=== PATIENT | female | born 1950 | race Caucasian/White ===

== ENCOUNTER → 2016-09-13 | Outpatient (CLI) | payer MEDICARE ==
[2016-09-13 09:38] LABS: Basophils # (A) 0.1 k/uL (0-0.2); Basophils % (A) 1 %; CH 31.9; Eosinophils # (A) 0.3 k/uL (0-0.7); Eosinophils % (A) 5 %; HCT 45.1 % (34.0-46.0); HDW 2.07; HGB 14.2 gm/dL (11.4-16.0); Luc # (Auto) 0.14; Luc % (Auto) 2; Lymphocytes # (A) 1.3 k/uL (1.0-4.8); Lymphocytes % (A) 20 %; MCH 31.5 pg (25.0-35.0); MCHC 31.5 g/dL (31.0-37.0); MCV 100.2 fL (80.0-100.0); Mean Platelet Volume 8.3; Monocytes # (A) 0.7 k/uL (0-1.0); Monocytes % (A) 10 %; Neutrophils % (A) 62 %; RDW 12.8 % (11.5-15.5); WBC 6.5 k/uL (3.8-10.6); WBC (Perox) 6.61
--- NOTE | 2016-09-13 11:48 | BD ---
EXAMINATION TYPE: MG DEXA axial skeleton. DATE OF EXAM: 09/13/2016 9:51 AM COMPARISON: NONE CLINICAL HISTORY: Height: 66.5 IN Weight: 182 LBS FRAX RISK QUESTIONS: Alcohol (3 or more units per day): NO Family History (Parent hip fracture): NO Glucocorticoids (More than 3mos): NO (Ex: prednisone, prednisolone, methylprednisolone, dexamethasone, and hydrocortisone). History of Fracture in Adulthood: NO Secondary Osteoporosis: 1. Type 1 Diabetes: NO 2. Hyperthyroidism: NO 3. Menopause before 45: NO 4. Malnutrition: NO 5. Chronic liver disease: NO Rheumatoid Arthritis: NO Current Tobacco Use: NO RISK FACTORS HISTORY OF: Family History of Osteoporosis: YES MOTHER Active: YES Postmenopausal woman: AGE 46 MEDICATIONS: Additional Medications: ZETIA, MYTERBIQ,CRANBERRY PILL, VIT C, BIOTIN EXAM MEASUREMENTS: Bone mineral densitometry was performed using the [employer] System. Bone mineral density as measured about the Lumbar spine is: ----- L1-L4(G/cm2): 0.969 T Score Values are as follows: ----- L2: -2.7 ----- L3: -1.5 ----- L4: -1.0 ----- L1-L4: -1.8 Bone mineral density has: NO CHANGE 0.0% since study of: 06/24/2008 Bone mineral density about the R hip (g/cm2): 0.782 Bone mineral density about the L hip (g/cm2): 0.795 T Score values are as follows: -----R Neck: -1.8 -----L Neck: -1.8 -----R Intertrochanter: -1.6 -----L Intertrochanter: -1.6 Bone mineral density has: Decreased -1.6% since study of: 06/24/2008 IMPRESSION: Osteoporosis (T Score less than -2.5) as noted by T Score values at the There is increased fracture risk and therapy is usually indicated based on age. Re-Screen 1-2 years.L2 NOTE: T-SCORE=SD OF THE YOUNG ADULT MEAN.
[2016-09-13 11:53] LABS: ALT 33 U/L (9-52); AST 30 U/L (14-36); Alkaline Phosphatase 69 U/L (38-126); Anion Gap 8 mmol/L; Blood Urea Nitrogen 16 mg/dL (7-17); Calcium 9.8 mg/dL (8.4-10.2); Carbon Dioxide 30 mmol/L (22-30); Chloride 104 mmol/L (98-107); Cholesterol 257 mg/dL (<200); Glucose 97 mg/dL (74-99); HDL Cholesterol 105 mg/dL (40-60); Magnesium 1.8 mg/dL (1.6-2.3); Non-African American GFR(MDRD) >60 (>60 ml/min/1.73 sqM); Potassium 4.4 mmol/L (3.5-5.1); Sodium 142 mmol/L (137-145); Total Bilirubin 0.8 mg/dL (0.2-1.3); Total Protein 7.5 g/dL (6.3-8.2); Triglycerides 80 mg/dL (<150)
[2016-09-13 12:56] LABS: Vitamin B12 493 pg/mL
--- NOTE | 2016-09-14 10:44 | MM ---
Reason for exam: screening (asymptomatic). Last mammogram was performed 1 year ago. History: Patient is postmenopausal. Family history of breast cancer in paternal aunt at age 60. Stereotactic core biopsy of the right breast, June 22, 2004. Benign excisional biopsy of the right breast. Took hormonal contraceptives for 5 years beginning at age 19. Physical Findings: A clinical breast exam by your physician is recommended on an annual basis and results should be correlated with mammographic findings. MG 3D Screening Mammo W/Cad Bilateral CC and MLO view(s) were taken. Prior study comparison: September 03, 2015, bilateral MG 3d screening mammo w/cad. August 18, 2014, bilateral MG screening mammo w CAD. There are scattered fibroglandular densities. Benign calcifications. There is no discrete abnormality. No significant changes when compared with prior studies. ASSESSMENT: Benign, BI-RAD 2 RECOMMENDATION: Routine screening mammogram of both breasts in 1 year.
== END | disposition home or self-care (01) ==
LOC: RADMAMWWP 09:10
PROVIDERS: ATTEND Family Medicine
DX: Z12.31 Encounter for screening mammogram for malignant neoplasm of breast (principal); Z13.29 Encounter for screening for other suspected endocrine disorder; M81.0 Age-related osteoporosis without current pathological fracture; E78.00 Pure hypercholesterolemia, unspecified; Z78.0 Asymptomatic menopausal state
CPT/HCPCS: 80061; 80053; 82607; 82746; 83735; 84443; 85025; 82306; 77080; 77063; 36415; G0202

== ENCOUNTER → 2017-02-21 | Outpatient (CLI) | payer MEDICARE ==
--- NOTE | 2017-02-21 15:56 | FL ---
EXAMINATION TYPE: FL barium swallow DATE OF EXAM: 02/21/2017 COMPARISON: NONE HISTORY: Dysphagia TECHNIQUE: A single contrast UGI study is performed. FINDINGS: Esophagus dilates to normal caliber has normal contour to the lower esophagus. Small hiatal hernia is present. This appears to be self reducing. No stenosis at the gastroesophageal junction is evident. IMPRESSIONS: 1. Small hiatal hernia which is self reducing.
== END | disposition home or self-care (01) ==
LOC: RADFLWHC 09:32
PROVIDERS: ATTEND Family Medicine
DX: K44.9 Diaphragmatic hernia without obstruction or gangrene (principal)
CPT/HCPCS: 74220

== ENCOUNTER 2017-04-10 06:06 | Emergency (ER) | payer MEDICARE ==
[2017-04-10 06:12] VITALS: BP 146/69; PULSE 75; RESP 18; TEMP 98.3
[2017-04-10] MEDS ORDERED: DIAZEPAM 5 MG/ML 2 ML SYRINGE IM ONE (06:37)
[2017-04-10] MEDS ORDERED: KETOROLAC 30 MG/ML 1 ML VIAL IM STA (06:37)
--- NOTE | 2017-04-10 06:52 | ED ---
General Adult HPI - General Source: patient, family, RN notes reviewed Mode of arrival: ambulatory Limitations: no limitations <Harinder Hardy - Last Filed: 04/10/17 06:47> <Harinder Ortiz - Last Filed: 04/10/17 10:00> - General Chief complaint: Back Pain/Injury Stated complaint: Back Pain Time Seen by Provider: 04/10/17 06:18 - History of Present Illness Initial comments: 66-year-old female with no significant history presents for evaluation of lower back pain. Patient is fairly active. She was at her aerobics class yesterday. No pain or injury. Went home schooling about her day, she was ironing some clothes and felt sudden onset back pain. This was bilateral nature. No shooting pain into the legs. No numbness or tingling. Pain is been constant and worsening over the past 12 hours. She denies any urinary incontinence or stool incontinence. Denies abdominal pain. Denies any symptoms in her lower legs, including numbness and tingling, no saddle anesthesia. (Harinder Hardy) - Related Data Home Medications Medication Instructions Recorded Confirmed Ascorbic Acid [Vitamin C] 500 mg PO HS 04/10/17 04/10/17 Biotin 5 mg PO HS 04/10/17 04/10/17 Ezetimibe [Zetia] 10 mg PO HS 04/10/17 04/10/17 Ibuprofen [Motrin] 400 mg PO Q6HR PRN 04/10/17 04/10/17 Mirabegron [Myrbetriq] 50 mg PO HS 04/10/17 04/10/17 Ubidecarenone [Co Q-10] 100 mg PO HS 04/10/17 04/10/17 Previous Rx's Medication Instructions Recorded Cyclobenzaprine [Flexeril] 10 mg PO TID #20 tab 04/10/17 Hydrocodone/Acetaminophen [[place] 1 - 2 each PO Q4HR PRN #20 tab 04/10/17 5-325] Ibuprofen [Motrin] 600 mg PO Q6H PRN #20 tab 04/10/17 Allergies Allergy/AdvReac Type Severity Reaction Status Date / Time ciprofloxacin [From Cipro] Allergy Unknown Verified 04/10/17 08:07 Penicillins Allergy Rash/Hives Verified 04/10/17 08:07 shellfish derived [Shrimp] Allergy Rash/Hives Verified 04/10/17 08:07 Sulfa (Sulfonamide Allergy Dyspnea Verified 04/10/17 08:07 Antibiotics) Review of Systems ROS Other: All systems not noted in ROS Statement are negative. <Harinder Hardy - Last Filed: 04/10/17 06:47> ROS Other: All systems not noted in ROS Statement are negative. <Harinder Ortiz - Last Filed: 04/10/17 10:00> ROS Statement: Those systems with pertinent positive or pertinent negative responses have been documented in the HPI. Past Medical History Past Medical History: Hypertension History of Any Multi-Drug Resistant Organisms: None Reported Past Surgical History: Hysterectomy, Tonsillectomy Past Psychological History: No Psychological Hx Reported Smoking Status: Never smoker Past Alcohol Use History: Occasional Past Drug Use History: None Reported <Harinder Hardy - Last Filed: 04/10/17 06:47> General Exam Limitations: no limitations General appearance: alert, in no apparent distress Head exam: Present: atraumatic, normocephalic Eye exam: Present: normal appearance, PERRL ENT exam: Present: normal exam Neck exam: Present: normal inspection, full ROM. Absent: tenderness Respiratory exam: Present: normal lung sounds bilaterally. Absent: respiratory distress, wheezes Cardiovascular Exam: Present: regular rate, normal rhythm GI/Abdominal exam: Present: soft. Absent: distended, tenderness, guarding External exam: Present: normal external exam Extremities exam: Present: normal inspection, full ROM, normal capillary refill. Absent: tenderness, pedal edema Back exam: Present: normal inspection, tenderness, muscle spasm, paraspinal tenderness, vertebral tenderness Neurological exam: Present: alert, oriented X3, CN II-XII intact. Absent: motor sensory deficit Psychiatric exam: Present: normal affect, normal mood Skin exam: Present: warm, dry. Absent: cyanosis, diaphoretic <Harinder Hardy - Last Filed: 04/10/17 06:47> Medical Decision Making <Harinder Hardy - Last Filed: 04/10/17 06:47> <Harinder Ortiz - Last Filed: 04/10/17 10:00> - Medical Decision Making 63-year-old female presents with atraumatic back pain. Pain began while the patient was ironing. Severe in nature, bilateral. On examination patient does have significant tenderness to palpation both at the midline as well as lumbar paraspinal muscles. There is no saddle anesthesia noted on examination. No lower extremity symptoms. Reflexes are 2+ bilaterally at the patella. Patient is given intramuscular Toradol and Valium. Given the midline tenderness CT of the lumbar spine is ordered. Patient's care is signed out to Dr. ortiz at shift change, awaiting reevaluation and CT results. (Harinder Hardy) On reevaluation, the patient is still having pain. She is given 1 mg of Dilaudid IM and is feeling much better on recheck. The computed tomography scan does show degenerative changes throughout the entire lumbar spine. There is degenerative discs noted at multiple levels. There is some disc bulging but no evidence of herniation. It is felt as though the patient would be stable for further outpatient follow-up and will be referred to orthopedic spine surgery. She is agreeable with this plan and leaves in no severe distress. ( Harinder Ortiz) Disposition <Harinder Hardy - Last Filed: 04/10/17 06:47> Time of Disposition: 09:58 <Harinder Ortiz - Last Filed: 04/10/17 10:00> Clinical Impression: Back pain, Degenerative disc disease, lumbar, Arthritis, lumbar spine, Bulging lumbar disc Disposition: HOME SELF-CARE Condition: Good Instructions: Acute Low Back Pain (ED), Arthritis (ED), Degenerative Disc Disease (ED) Prescriptions: Cyclobenzaprine [Flexeril] 10 mg PO TID #20 tab Hydrocodone/Acetaminophen [[place]well 5-325] 1 - 2 each PO Q4HR PRN #20 tab PRN Reason: Pain Ibuprofen [Motrin] 600 mg PO Q6H PRN #20 tab PRN Reason: Pain Referrals: Raquel Diggs MD [Primary Care Provider] - 1-2 days Christine Clarke DO [Doctor of Osteopathic Medicine] - 04/13/17
--- NOTE | 2017-04-10 07:26 | CT ---
EXAMINATION TYPE: CT lumbar spine wo con DATE OF EXAM: 04/10/2017 COMPARISON: NONE HISTORY: back pain CT DLP: 598.[address] of the lumbar spine was performed. Bone and soft tissue window settings are submitted as well as coronal and sagittal reconstructions. L1-L2: Normal disc space height. No disc herniation protrusion or central stenosis. No facet joint arthropathy. No evidence for foraminal encroachment. L2-L3: Mild degenerative disc space narrowing. No disc herniation protrusion or central stenosis. No facet joint arthropathy. No evidence for foraminal encroachment. L3-L4: Mild to moderate degenerative disc space narrowing. Circumferential disc bulge with mild effac ement of the ventral thecal sac. No evidence of herniation protrusion or central stenosis. Facet join t arthropathy. Neural foramina are patent bilaterally. L4-L5: Moderate degenerative disc space narrowing. Circumferential disc bulge with mild effacement of the ventral thecal sac. No evidence of herniation protrusion or central stenosis. Facet joint arthro lizbet. Neural foramina are patent bilaterally. L5-S1: Moderate to severe degenerative disc space narrowing. Circumferential disc bulge with mild eff acement of the ventral thecal sac. No evidence of herniation protrusion or central stenosis. Facet gabrielle int arthropathy. Neural foramina are patent bilaterally. No paraspinal masses are identified. Lumbar segments are free of fracture. Nonobstructing calculus l ower pole left kidney. Nonaneurysmal atheromatous change of the abdominal aorta. IMPRESSION: 1. Multilevel degenerative disc disease and disc bulging without evidence for nicky disc herniation o r central stenosis. Facet joint arthropathy identified without foraminal encroachment.
[2017-04-10] MEDS ORDERED: HYDROmorphone 1 MG/ML 1 ML SYRINGE IM STA (08:58)
== END 2017-04-10 10:20 | disposition home or self-care (01) ==
LOC: EC 06:06
DX: M51.36 Other intervertebral disc degeneration, lumbar region (principal); M46.96 Unspecified inflammatory spondylopathy, lumbar region; Z79.899 Other long term (current) drug therapy; Z88.1 Allergy status to other antibiotic agents; Z88.0 Allergy status to penicillin; Z88.2 Allergy status to sulfonamides; Z91.013 Allergy to seafood
CPT/HCPCS: 72131; 99284; 96372 ×3; J3360; J1885; J1170

== ENCOUNTER → 2017-09-25 | Outpatient (CLI) | payer MEDICARE ==
[2017-09-25 08:35] LABS: Basophils # (A) 0.1 k/uL (0-0.2); Basophils % (A) 1 %; Eosinophils # (A) 0.2 k/uL (0-0.7); Eosinophils % (A) 3 %; HGB 14.1 gm/dL (11.4-16.0); Lymphocytes # (A) 3.3 k/uL (1.0-4.8); Lymphocytes % (A) 50 %; MCH 32.3 pg (25.0-35.0); MCV 100.7 fL (80.0-100.0); Mean Platelet Volume 7.4; Monocytes # (A) 0.6 k/uL (0-1.0); Monocytes % (A) 9 %; Neutrophils # (A) 2.2 k/uL (1.3-7.7); Neutrophils % (A) 33 %; Platelet Count 270 k/uL (150-450); RBC 4.37 m/uL (3.80-5.40); RDW 13.1 % (11.5-15.5); WBC 6.6 k/uL (3.8-10.6)
[2017-09-25 08:52] LABS: ALT 40 U/L (9-52); AST 37 U/L (14-36); Albumin 4.4 g/dL (3.5-5.0); Alkaline Phosphatase 77 U/L (38-126); Anion Gap 8 mmol/L; Blood Urea Nitrogen 19 mg/dL (7-17); Calcium 10.1 mg/dL (8.4-10.2); Carbon Dioxide 32 mmol/L (22-30); Chloride 104 mmol/L (98-107); Cholesterol 245 mg/dL (<200); Glucose 96 mg/dL (74-99); HDL Cholesterol 103 mg/dL (40-60); LDL Cholesterol,Calculated 131 mg/dL (0-99); Potassium 4.7 mmol/L (3.5-5.1); Sodium 144 mmol/L (137-145); Total Bilirubin 0.6 mg/dL (0.2-1.3); Total Protein 7.2 g/dL (6.3-8.2); Triglycerides 53 mg/dL (<150)
== END | disposition home or self-care (01) ==
LOC: LABWHC1 08:14
PROVIDERS: ATTEND Family Medicine
DX: E78.00 Pure hypercholesterolemia, unspecified (principal)
CPT/HCPCS: 36415; 80053; 80061; 85025

== ENCOUNTER → 2017-11-27 | Outpatient (CLI) | payer MEDICARE ==
--- NOTE | 2017-11-27 20:13 | PN ---
PROGRESS NOTE This patient has severe symptomatic obstructive sleep apnea with an AHI of 40. The patient was given CPAP therapy back then in 2014 and she was being treated with a CPAP pressure of 9 cm of water. She has been utilizing an AirFit P10 nose pillow. I am seeing her after 3 years of interruption. She is still using her CPAP machine. She is very compliant. Based on the compliancy data, the patient has been utilizing her CPAP every night at a pressure of 9 cm of water. Her compliancy for more than 4 hours is 100%. Her average CPAP use is around 6.5 hours per night. Leak factor is 9 L/minute. Her AHI while on treatment is down to 3.7. Her weight has been stable. No recent weight gain or weight loss. She goes to bed around 10 or 11:00 and she wakes up at 5:00 in the morning. She is interested in obtaining a different mask interface. My recommendation was to try a DreamWear, which is more soft and less aggressive on her nose, which at times becomes ulcerated because of the nasal pillows. PHYSICAL EXAMINATION: BP is 147/79, pulse 79, respirations 16, temperature 97.0, saturation 98% on room air. Weight is 186, height 5 feet 6 inches, BMI 29.5. [place] score is 6. GENERAL APPEARANCE: Calm, comfortable. Head is atraumatic, normocephalic. Neck is supple. Crowding of posterior pharynx. There is no goiter or neck masses. LUNGS: Diminished breath sounds; otherwise clear. Heart sounds are regular rate and rhythm. Normal S1, S2. No significant murmurs appreciated. Abdomen is soft, nontender. No organomegaly. No direct tenderness, rebound tenderness or guarding. EXTREMITIES: No edema. No cyanosis or clubbing. Neurologically alert and oriented x3. There is no focal neurological deficit. PSYCHIATRIC: Appropriate mood and affect. SKIN: Negative for any wounds or ulceration. IMPRESSION: 1. Symptomatic severe obstructive sleep apnea with an AHI of 40, still on CPAP pressure of 9. 2. Hypersomnia, improved with CPAP therapy. 3. Hyperlipidemia. 4. Stress urinary incontinence. PLAN: 1. I offered this patient the DreamWear nose mask. 2. Encourage weight loss. 3. Continue CPAP at the same level of pressure. 4. Optimize sleep hygiene measures. 5. Will continue to follow. MMODL / IJN: [id number] /
== END ==
LOC: SLEEP 15:13
PROVIDERS: ATTEND Internal Medicine Critical Care Medicine
DX: G47.33 Obstructive sleep apnea (adult) (pediatric) (principal); E78.5 Hyperlipidemia, unspecified; N39.3 Stress incontinence (female) (male); Z99.89 Dependence on other enabling machines and devices

== ENCOUNTER 2017-11-28 11:08 | Day surgery (SDC) | payer MEDICARE ==
[2017-11-26 08:36] VITALS: BMI 28.8
[2017-11-28 13:02] VITALS: TEMP 978.7
[2017-11-28] MEDS ORDERED: LIDOCAINE 1% 20 ML VIAL (10MG/ML) FOR IV START INTRADERMA ONE (13:03)
[2017-11-28] MEDS: LACTATED RINGERS 1,000 ML IV SCH ×2 (13:03→13:09)
[2017-11-28] MEDS ORDERED: PROPOFOL 10 MG/ML 20 ML VIAL IV ONE (13:07)
[2017-11-28] MEDS ORDERED: LIDOCAINE 1% INJ 10MG/ML (20 ML MDV) ONE (13:07)
--- NOTE | 2017-11-28 13:21 | P.GSHP ---
History of Present Illness H&P Date: 11/28/17 Chief Complaint: Screening Patient here today for colonoscopy. Last colonoscopy 7 years ago. The patient had a poor prep at that time and believes she had polyps as well. No bowel related complaints currently. Past Medical History Past Medical History: GERD/Reflux, Hyperlipidemia, Sleep Apnea/CPAP/BIPAP Additional Past Medical History / Comment(s): hx migraines, constipation, urinary leakage History of Any Multi-Drug Resistant Organisms: None Reported Past Surgical History: Bladder Surgery, Hysterectomy, Tonsillectomy Additional Past Surgical History / Comment(s): lasik surgery rober Past Anesthesia/Blood Transfusion Reactions: Motion Sickness Smoking Status: Former smoker - Past Family History Father Family Medical History: Deep Vein Thrombosis (DVT) Medications and Allergies Home Medications Medication Instructions Recorded Confirmed Type Ezetimibe [Zetia] 10 mg PO HS 04/10/17 11/28/17 History Mirabegron [Myrbetriq] 50 mg PO HS 04/10/17 11/28/17 History Ubidecarenone [Co Q-10] 200 mg PO HS 04/10/17 11/28/17 History Ascorbic Acid [Vitamin C] 1,000 mg PO HS 11/26/17 11/28/17 History Bioflex 1 tab PO HS 11/26/17 11/28/17 History Biotin 10,000 mcg PO HS 11/26/17 11/28/17 History Cholecalciferol [Vitamin D3] 1,000 unit PO HS 11/26/17 11/28/17 History Cranberry Fruit Extract [Cranberry] 500 mg PO HS 11/26/17 11/28/17 History Allergies Allergy/AdvReac Type Severity Reaction Status Date / Time ciprofloxacin [From Cipro] Allergy Unknown Verified 11/28/17 12:44 Penicillins Allergy Rash/Hives Verified 11/28/17 12:44 shellfish derived [Shrimp] Allergy Rash/Hives Verified 11/28/17 12:44 Sulfa (Sulfonamide Allergy Dyspnea Verified 11/28/17 12:44 Antibiotics) Surgical - Exam Vital Signs Temp Pulse Resp BP Pulse Ox 978.7 F H 80 18 116/74 98 11/28/17 13:00 11/28/17 13:00 11/28/17 13:00 11/28/17 13:00 11/28/17 13:00 Physical exam: General: Well-developed, well-nourished HEENT: Normocephalic, sclerae nonicteric Abdomen: Nontender, nondistended Extremities: No edema Neuro: Alert and oriented Assessment and Plan (1) Colon cancer screening Current Visit: Yes Status: Acute Code(s): Z12.11 - ENCOUNTER FOR SCREENING FOR MALIGNANT NEOPLASM OF COLON SNOMED Code(s): 923468393
--- NOTE | 2017-11-28 13:43 | P.PCN ---
Date of Procedure: 11/28/17 Procedure(s) Performed: PREOPERATIVE DIAGNOSIS: Colon cancer screening POSTOPERATIVE DIAGNOSIS: Diverticulosis PROCEDURE: Colonoscopy ANESTHESIA: MAC SURGEON: Arnold Diggs M.D. SPECIMENS: None ENDOSCOPIC PROCEDURE: The patient was placed on the endoscopy table in the left decubitus position. The Olympus colonoscope was inserted into the anus and passed under direct visualization to the base of the cecum. The appendiceal orifice was visualized. From that point the scope was slowly withdrawn inspecting all surfaces carefully. There were no neoplastic inflammatory or polypoid lesions throughout the cecum, ascending, transverse, descending, sigmoid and rectum. There was mild diverticulosis noted in the sigmoid colon. The patient's prepped proximally was suboptimal with some retained particulate stool. Digital rectal examination was normal. The patient was taken to the recovery room in stable condition per anesthesia guidelines. RECOMMENDATIONS: Increase fiber. Follow-up colonoscopy 5 years given the patient's history of previous polyps.
[2017-11-28 13:47] VITALS: RESP 16
[2017-11-28 14:04] VITALS: BP 133/65; PULSE 87
== END 2017-11-28 14:26 | disposition home or self-care (01) ==
LOC: ORWHC2ENDO 11:08
PROVIDERS: ATTEND Surgery
DX: Z12.11 Encounter for screening for malignant neoplasm of colon (principal); K57.30 Diverticulosis of large intestine without perforation or abscess without bleeding; K21.9 Gastro-esophageal reflux disease without esophagitis; E78.5 Hyperlipidemia, unspecified; G47.30 Sleep apnea, unspecified; F32.9 Major depressive disorder, single episode, unspecified; R32 Unspecified urinary incontinence; Z87.891 Personal history of nicotine dependence; Z79.899 Other long term (current) drug therapy; Z88.0 Allergy status to penicillin; Z88.1 Allergy status to other antibiotic agents; Z88.2 Allergy status to sulfonamides; Z91.013 Allergy to seafood; Z90.710 Acquired absence of both cervix and uterus; Z86.69 Personal history of other diseases of the nervous system and sense organs; Z86.010 Personal history of colon polyps
CPT/HCPCS: J2001; J2704; G0105; 45378

== ENCOUNTER → 2018-10-14 | Outpatient (CLI) | payer MEDICARE ==
--- NOTE | 2018-10-14 17:14 | BD ---
EXAMINATION TYPE: Axial Bone Density DATE OF EXAM: 10/14/2018 COMPARISON: NONE CLINICAL HISTORY: Height: 66 Weight: 181.9 FRAX RISK QUESTIONS: Alcohol (3 or more units per day): no Family History (Parent hip fracture): no Glucocorticoids (More than 3mos): no (Ex: prednisone, prednisolone, methylprednisolone, dexamethasone, and hydrocortisone). History of Fracture in Adulthood: no Secondary Osteoporosis: 1. Type 1 Diabetes: no 2. Hyperthyroidism: no 3. Menopause before 45: no 4. Malnutrition: no 5. Chronic liver disease: no Rheumatoid Arthritis: no Current Tobacco Use: no RISK FACTORS HISTORY OF: Family History of Osteoporosis: yes Active: yes Diet low in dairy products/other sources of calcium: yes Postmenopausal woman: age 45 Lost more than 2 inches in height since high school: just 2 inches MEDICATIONS: zetia, mitrobec Additional History: EXAM MEASUREMENTS: Bone mineral densitometry was performed using the [employer] System. Bone mineral density as measured about the Lumbar spine is: ----- L1-L4(G/cm2): 0.963 T Score Values are as follows: ----- L2: -2.8 ----- L3: -1.9 ----- L4: -1.0 ----- L1-L4: -1.8 Bone mineral density has: increased 0.2 % since study of: 09.13.2016 Bone mineral density about the R hip (g/cm2): 0.790 Bone mineral density about the L hip (g/cm2): 0.811 T Score values are as follows: -----R Neck: -1.8 -----L Neck: -1.6 -----R Total: -1.5 -----L Total: -1.6 Bone mineral density has: increased 0.2 % since study of: 09.13.2016 IMPRESSION: Osteopenia (T Score between -2.5 and -1). There is slightly increased risk of fracture and the patient may be considered for treatment. Re-Screen 2-5 years. NOTE: T-SCORE=SD OF THE YOUNG ADULT MEAN.
--- NOTE | 2018-10-16 09:23 | MM ---
Reason for exam: screening (asymptomatic). Last mammogram was performed 2 years and 1 month ago. History: Patient is postmenopausal. Family history of breast cancer in paternal aunt at age 60. Stereotactic core biopsy of the right breast, June 22, 2004. Benign excisional biopsy of the right breast. Took hormonal contraceptives for 5 years beginning at age 19. Physical Findings: A clinical breast exam by your physician is recommended on an annual basis and results should be correlated with mammographic findings. MG 3D Screening Mammo W/Cad Bilateral CC and MLO view(s) were taken. Prior study comparison: September 13, 2016, bilateral MG 3d screening mammo w/cad. September 03, 2015, bilateral MG 3d screening mammo w/cad. There are scattered fibroglandular densities. Previous mammotome biopsy in the right breast. Scattered benign oil cysts. No significant changes when compared with prior studies. ASSESSMENT: Benign, BI-RAD 2 RECOMMENDATION: Routine screening mammogram of both breasts in 1 year.
== END | disposition home or self-care (01) ==
LOC: RADMAMWWP 11:44
PROVIDERS: ATTEND Family Medicine
DX: Z12.31 Encounter for screening mammogram for malignant neoplasm of breast (principal); M85.80 Other specified disorders of bone density and structure, unspecified site
CPT/HCPCS: 77063; 77067; 77080

== ENCOUNTER → 2019-01-17 | Outpatient (CLI) | payer MEDICARE ==
[2019-01-17 10:13] LABS: Calcium 9.8 mg/dL (8.4-10.2)
--- NOTE | 2019-01-17 10:59 | CT ---
EXAMINATION TYPE: CT urogram wo/w con DATE OF EXAM: 01/17/2019 COMPARISON: None HISTORY: Hematuria, mixed incontinence CT DLP: 1664.2 mGycm CONTRAST: Performed and without and with IV Contrast, patient injected with 100 mL of Isovue 300. CT Urography was performed with unenhanced followed by enhanced images of the kidneys, ureters and ur inary bladder. Delayed images were obtained. 3d reconstruction was perfromed at a separate work sta tion. FINDINGS: KIDNEYS/BLADDER: No hydronephrosis. 3 mm nonobstructing calculus lower pole left kidney. No distinct renal mass. Urinary bladder grossly unremarkable. LUNG BASES-: No visible nodule. No infiltrate. LIVER/GB: No calcified gallstones. No space occupying hepatic lesion. Biliary tree is of normal ca liber. PANCREAS: No inflammation. No distinct mass. SPLEEN: No splenic enlargement. No lesion seen. ADRENALS: No nodule. No thickening. BOWEL: Moderate fixed hiatal hernia. Normal appendix. Normal bowel caliber. No inflammation. GENITAL ORGANS: No gross abnormality. LYMPH NODES: No greater than 1cm abdominal or pelvic lymph nodes are appreciated. AORTA: No significant abnormality. OSSEOUS STRUCTURES: No significant abnormality is seen. OTHER: No significant additional abnormality is seen. IMPRESSION: 1. No distinct abnormality to account for the patient's symptoms. Nonobstructing left-sided nephrolit hiasis. 2. Moderate fixed hiatal hernia.
== END | disposition home or self-care (01) ==
LOC: RADCTMAIN 09:10
PROVIDERS: ATTEND Urology
DX: N20.0 Calculus of kidney (principal); K44.9 Diaphragmatic hernia without obstruction or gangrene; R31.21 Asymptomatic microscopic hematuria
CPT/HCPCS: 80048; 74178; 36415; 74400; Q9967; 88108

== ENCOUNTER → 2019-02-18 | Outpatient (CLI) | payer MEDICARE ==
--- NOTE | 2019-02-18 20:48 | PN ---
PROGRESS NOTE Marina is 68 coming in for annual check regarding obstructive sleep apnea. She has a severe MIKE with an AHI of 40, positional and currently she is on CPAP pressure of 9 cm of water. She is using a DreamWear under the nose small size. Weight has been stable. She has lost 30 pounds. Compliance data looked excellent. AHI is down to 6 while on treatment. She is using her CPAP more than 6 hours per night. Her CPAP use for more than 4 hours is 100%, leak is 11 L/minute. She is very calm and comfortable and she has no other new complaints for now. REVIEW OF SYSTEMS: Fourteen-point review of system was done. Positive findings are mentioned in history of present illness. PHYSICAL EXAMINATION: BP is 139/79, pulse 83, respirations 16, temperature 97.7. Saturation 95% on room air. Weight is 183, height is 5 feet 6 inches, BMI is 29. [place] score is 6. GENERAL APPEARANCE: Calm, comfortable. HEENT: Head is atraumatic, normocephalic. NECK: Supple. Mallampati class IV. There is no goiter or neck mass. LUNGS: Clear to auscultation. HEART: Sounds regular rate and rhythm. Normal S1, S2. No S3. No murmurs. ABDOMEN: Soft, nontender. No organomegaly. EXTREMITIES: No edema. No cyanosis or clubbing. IMPRESSION: 1. Severe obstructive sleep apnea with an AHI of 40, currently on CPAP pressure of 9 well treating, the patient looking well. 2. Hypersomnia, improved. 3. Hyperlipidemia. PLAN: Continue CPAP therapy at same level of pressure. Keep same mask interface. Refills were given. See me back in a year's time or earlier if needed. MMODL / IJN: [id number] / BAYLEE
== END ==
LOC: SLEEP 15:21
PROVIDERS: ATTEND Internal Medicine Critical Care Medicine
DX: G47.33 Obstructive sleep apnea (adult) (pediatric) (principal); E78.5 Hyperlipidemia, unspecified; Z99.89 Dependence on other enabling machines and devices

== ENCOUNTER → 2019-10-02 | Outpatient (CLI) | payer MEDICARE ==
--- NOTE | 2019-10-02 09:11 | US ---
EXAMINATION TYPE: US liver DATE OF EXAM: 10/02/2019 COMPARISON: NONE CLINICAL HISTORY: R94.5 Abnormal LFts, R79.89 abnormal labs. EXAM MEASUREMENTS: Liver Length: 13.9 cm Gallbladder Wall: 0.2 cm CBD: 0.7 cm Right Kidney: 10.5 x 3.8 x 5.6 cm Pancreas: visualized portions wnl Liver: wnl Gallbladder: No stones seen Evidence for sonographic Osorio's sign: No CBD: wnl for the patient's age. Right Kidney: No hydronephrosis or masses seen IMPRESSION: Unremarkable ultrasound of the liver. Liver appears homogeneous sonographically. No sonog raphic evidence of cholelithiasis nor acute cholecystitis.
== END | disposition home or self-care (01) ==
LOC: RADUSWWP 08:05
PROVIDERS: ATTEND Family Medicine
DX: R79.89 Other specified abnormal findings of blood chemistry (principal); R94.5 Abnormal results of liver function studies
CPT/HCPCS: 76705

== ENCOUNTER → 2021-03-30 | Outpatient (CLI) | payer MEDICARE ==
--- NOTE | 2021-03-30 13:33 | FL ---
EXAMINATION TYPE: FL barium swallow w video DATE OF EXAM: 03/30/2021 COMPARISON: NONE HISTORY: Dysphagia. The patient was evaluated in the lateral projection during real-time fluoroscopy, during ingestion of barium mixed with solids and liquids. No aspiration or laryngeal penetration. See report from [facility]. 47 seconds fluoroscopy time. No images obtained.
== END | disposition home or self-care (01) ==
LOC: RADFLMAIN 11:21
PROVIDERS: ATTEND Family Medicine
DX: R13.10 Dysphagia, unspecified (principal)
CPT/HCPCS: 74230

== ENCOUNTER → 2021-04-18 | Outpatient (CLI) | payer MEDICARE ==
--- NOTE | 2021-04-19 07:59 | US ---
EXAMINATION TYPE: US kidneys/renal and bladder DATE OF EXAM: 04/18/2021 COMPARISON: NONE CLINICAL HISTORY: N20.0 KIDNEY STONE. small renal stone on the left seen on lumbar CT in 2017, no pa in, no hematuria EXAM MEASUREMENTS: Right Kidney: 9.8 x 4.7 x 3.7 cm Left Kidney: 9.5 x 4.1 x 4.6 cm Right Kidney: No hydronephrosis or masses seen Left Kidney: Limited assessment due to bowel gas and rotation of kidney, rolled patient RLD, no hydro nephrosis or masses seen Bladder: wnl There is no evidence for hydronephrosis at this point in time. No nephrolithiasis is seen. No raf s are identified. The urinary bladder is anechoic. Bilateral ureteral jets are seen. IMPRESSION: No discrete abnormalities seen at this time.
== END | disposition home or self-care (01) ==
LOC: RADUSWWP 15:38
PROVIDERS: ATTEND Urology
DX: Z03.89 Encounter for observation for other suspected diseases and conditions ruled out (principal)
CPT/HCPCS: 76770

== ENCOUNTER 2021-05-31 09:45 | Day surgery (SDC) | payer MEDICARE ==
[2021-05-17 11:44] VITALS: BMI 29.0
[~2021-05-31 09:45] MED LIST: LACTATED RINGERS 1,000 ML IV SCH; LIDOCAINE 1% (10MG/ML) FOR IV START INTRADERMA PRN
[2021-05-31 10:14] VITALS: RESP 16; TEMP 97.8
[2021-05-31] MEDS ORDERED: LIDOCAINE 1% (10MG/ML) FOR IV START INTRADERMA ONE (10:18)
[2021-05-31] MEDS ORDERED: LACTATED RINGERS 1,000 ML IV ONE (10:20)
[2021-05-31] MEDS ORDERED: PROPOFOL 10 MG/ML 20 ML VIAL IV ONE (10:21)
--- NOTE | 2021-05-31 10:24 | P.GSHP ---
History of Present Illness H&P Date: 05/31/21 Chief Complaint: Dysphagia 70-year-old female has intermittent episodes of dysphagia. Usually happens more than once per week. Has episodes of vomiting occasionally as well. Recent modified barium swallow showed no definite abnormalities. Past Medical History Past Medical History: GERD/Reflux, Hearing Disorder / Deafness, Hyperlipidemia, Sleep Apnea/CPAP/BIPAP Additional Past Medical History / Comment(s): Hx migraines, "none in years", constipation, urinary leakage, bilateral hearing aid use. History of Any Multi-Drug Resistant Organisms: None Reported Past Surgical History: Bladder Surgery, Hysterectomy, Tonsillectomy Additional Past Surgical History / Comment(s): Bilateral Lasik eye surgery. Past Anesthesia/Blood Transfusion Reactions: No Reported Reaction Additional Past Anesthesia/Blood Transfusion Reaction / Comment(s): "Mom was very whacky when she came out of anesthesia". Past Psychological History: No Psychological Hx Reported Smoking Status: Former smoker Past Alcohol Use History: Daily Additional Past Alcohol Use History / Comment(s): Quit smoking 35 yrs ago, smoked for 10 yrs, < 1 PPD. 2 alcoholic drinks daily. Past Drug Use History: None Reported - Past Family History Father Family Medical History: Deep Vein Thrombosis (DVT) Son(s) Additional Family Medical History / Comment(s): Hx "blood clot in groin area". Medications and Allergies Home Medications Medication Instructions Recorded Confirmed Type Ezetimibe [Zetia] 10 mg PO HS 04/10/17 05/17/21 History Mirabegron [Myrbetriq] 25 mg PO HS 04/10/17 05/17/21 History Allergies Allergy/AdvReac Type Severity Reaction Status Date / Time ciprofloxacin [From Cipro] Allergy Unknown Verified 05/31/21 10:12 Penicillins Allergy Rash/Hives Verified 05/31/21 10:12 shellfish derived [Shrimp] Allergy Rash/Hives Verified 05/31/21 10:12 Sulfa (Sulfonamide Allergy Dyspnea Verified 05/31/21 10:12 Antibiotics) Surgical - Exam Vital Signs Temp Pulse Resp BP Pulse Ox 97.8 F 74 16 134/64 97 05/31/21 10:12 05/31/21 10:12 05/31/21 10:12 05/31/21 10:12 05/31/21 10:12 Physical exam: General: Well-developed, well-nourished HEENT: Normocephalic, sclerae nonicteric Abdomen: Nontender, nondistended Extremities: No edema Neuro: Alert and oriented Assessment and Plan (1) Dysphagia Narrative/Plan: Will proceed with upper endoscopy at this time Current Visit: Yes Status: Acute Code(s): R13.10 - DYSPHAGIA, UNSPECIFIED SNOMED Code(s): 32343116
[2021-05-31] MEDS ORDERED: IV FLUID CONTINUATION 1,000 ML IV ONE (10:31)
--- NOTE | 2021-05-31 10:34 | P.PCN ---
Date of Procedure: 05/31/21 Procedure(s) Performed: Preoperative Dx: Dysphagia Postoperative Dx: Moderate sized hiatal hernia, mild distal esophagitis, mild gastritis Procedure: EGD with Bx Anesthesia: Sedation Endoscopist: Dr. Diggs Specimens: Antrum, distal esophagus Endoscopic Procedure: The patient was on the endoscopy table in the left decubitus position. The Olympus gastroscope was inserted into the oropharynx and passed under direct visualization to the region of the third portion of the duodenum. From that point the scope was slowly withdrawn inspecting all surfaces carefully. There were no neoplastic inflammatory or polypoid lesions throughout the duodenum. The pylorus was widely patent. The stomach was carefully inspected. There was mild gastritis present. A biopsy of the antrum took place to rule out H. pylori. Retroflexion revealed a moderate sized hiatal hernia. GE junction was present at 35 cm while the diaphragmatic hiatus was present at 42 cm. Some tortuosity of the esophagus was noted. There was too small linear erosions measuring 1.5-2 cm in length were non-circumferential. This was biopsied. No Shelton's changes were seen. The patient was then taken to the recovery room in stable condition per anesthesia guidelines. Recommendations: Await biopsy results. Resume antiacid therapy. We'll discuss surgical options with the patient
[2021-05-31 11:00] VITALS: BP 126/70; PULSE 70
== END 2021-05-31 11:18 | disposition home or self-care (01) ==
LOC: ORWHC2ENDO 09:45
PROVIDERS: ATTEND Surgery
DX: K29.50 Unspecified chronic gastritis without bleeding (principal); K20.0 Eosinophilic esophagitis; K44.9 Diaphragmatic hernia without obstruction or gangrene; K22.9 Disease of esophagus, unspecified; E78.5 Hyperlipidemia, unspecified; G47.30 Sleep apnea, unspecified; R32 Unspecified urinary incontinence; H91.93 Unspecified hearing loss, bilateral; Z90.710 Acquired absence of both cervix and uterus; Z98.890 Other specified postprocedural states; Z87.891 Personal history of nicotine dependence; Z82.49 Family history of ischemic heart disease and other diseases of the circulatory system; Z79.899 Other long term (current) drug therapy; Z88.2 Allergy status to sulfonamides; Z88.1 Allergy status to other antibiotic agents; Z88.0 Allergy status to penicillin; Z91.013 Allergy to seafood
CPT/HCPCS: 88305; 43239; J2704

== ENCOUNTER → 2021-09-06 | Outpatient (CLI) | payer MEDICARE ==
--- NOTE | 2021-09-06 18:30 | PN ---
PROGRESS NOTE This patient is 70 and she is coming in for an annual check regarding obstructive sleep apnea. Note that the patient has a severe case of MIKE with an AHI of 40. She is using a DreamWear [id number] mask. She has been extremely compliant, and her compliancy data reflect that. She is at the pressure of 9 cm of water. She is averaging around 7.5 hours of CPAP use per night. CPAP use for more than 4 hours is 100%. Leak is on order of L/minute and AHI is down to 0.8. She is interested in re-evaluation. She thinks that she is much better at this point; so much so that she may be able to come off the treatment. For that reason, I suggested a home sleep study. She was complaining of some irritation around the nose because of her mask, and I offered the DreamWisp nasal mask. REVIEW OF SYSTEMS: Fourteen-point review of systems was done. Positive findings are all mentioned above in the history of present illness. PHYSICAL EXAMINATION: BP is 138/88, pulse is 74, respirations 16, temperature 97.1 saturation 99% on room air. Height is 5 feet 6 inches, weight is 190, BMI 30.4. Black Diamond score is 4. GENERAL APPEARANCE: Calm, comfortable. HEAD: Atraumatic, normocephalic. Neck is supple. No JVD. No goiter or neck masses. Mallampati class IV. LUNGS: Clear to auscultation. Heart sounds are regular rate and rhythm. Normal S1, S2. No S3, S4. No murmurs. ABDOMEN: Soft, nontender. No organomegaly. EXTREMITIES: No edema. No cyanosis or clubbing. IMPRESSION: 1. Obstructive sleep apnea, severe. AHI of 40, currently successfully treated on a CPAP pressure of 9. 2. Hypersomnia, recovered. 3. Hyperlipidemia. 4. Adequate compliance with CPAP therapy. PLAN: 1. Repeat the home sleep study to reevaluate the presence and severity of sleep apnea. 2. Continue CPAP therapy at this point in time at the pressure of 9. 3. Continue using the DreamWear nasal mask. 4. I offered the DreamWisp nasal mask as an alternative due to her ongoing nose irritation. 5. See me back in a year's time in followup. MMODL / IJN: [id number] /
== END ==
LOC: SLEEP 15:47
PROVIDERS: ATTEND Internal Medicine Critical Care Medicine
DX: G47.33 Obstructive sleep apnea (adult) (pediatric) (principal); E78.5 Hyperlipidemia, unspecified; Z99.89 Dependence on other enabling machines and devices; Z88.1 Allergy status to other antibiotic agents; Z88.0 Allergy status to penicillin; Z88.2 Allergy status to sulfonamides; Z91.013 Allergy to seafood; Z87.891 Personal history of nicotine dependence

== ENCOUNTER → 2021-12-20 | Outpatient (CLI) | payer MEDICARE | END | disposition home or self-care (01) | LOC: LABWHC1 07:30 | PROVIDERS: ATTEND Family Medicine | DX: Z00.00 Encounter for general adult medical examination without abnormal findings (principal); M13.0 Polyarthritis, unspecified; R07.9 Chest pain, unspecified; Z78.0 Asymptomatic menopausal state | CPT/HCPCS: 36415; 80053; 80061; 84443; 85025 ==

== ENCOUNTER → 2021-12-29 | Outpatient (CLI) | payer MEDICARE ==
--- NOTE | 2021-12-29 21:51 | BD ---
EXAMINATION TYPE: Axial Bone Density DATE OF EXAM: 12/29/2021 COMPARISON: 10/14/2018 CLINICAL HISTORY: 71 years year old Female. ICD-10 CODE: Z78.0 POST MENOPAUSAL Height: 65.7 IN Weight: 183 LBS FRAX RISK QUESTIONS: Secondary Osteoporosis: 3. Menopause before 45: TOTAL HYST AGE 43 RISK FACTORS HISTORY OF: Family History of Osteoporosis: MOTHER Active: YES Diet low in dairy products/other sources of calcium: YES Postmenopausal woman: TOTAL HYST AGE 43 MEDICATIONS: Additional Medications: MULTI VIT, VIT D, BLADDER MEDS, CHOLESTEROL MEDS EXAM MEASUREMENTS: Bone mineral densitometry was performed using the [employer] System. Bone mineral density as measured about the Lumbar spine is: ----- L1-L4(G/cm2): 1.011 T Score Values are as follows: ----- L1: -2.0 ----- L2: -2.1 ----- L3: -1.4 ----- L4: -0.6 ----- L1-L4: -1.4 Bone mineral density has: Increased 6.2% since study of: 10/14/2018 Bone mineral density about the R hip (g/cm2): 0.767 Bone mineral density about the L hip (g/cm2): 0.787 T Score values are as follows: -----R Neck: -1.9 -----L Neck: -1.8 -----R Total: -1.5 -----L Total: -1.6 Bone mineral density has: Decreased -0.9% since study of: 10/14/2018 FRAX%s: The graph provided illustrates a 12.2 chance for a major osteoporotic fx and a 2.7 chance for the hips probability for fx in 10 years time. IMPRESSION: Osteopenia (T Score between -2.5 and -1). There is slightly increased risk of fracture and the patient may be considered for treatment. Re-Screen 2-5 years. NOTE: T-SCORE=SD OF THE YOUNG ADULT MEAN.
--- NOTE | 2021-12-30 12:39 | MM ---
Reason for exam: screening (asymptomatic). Last mammogram was performed 2 years and 3 months ago. History: Patient is postmenopausal and history of other cancer. Family history of breast cancer in paternal aunt at age 60. Stereotactic core biopsy of the right breast, June 22, 2004. Benign excisional biopsy of the right breast. Took hormonal contraceptives for 5 years beginning at age 19. Physical Findings: A clinical breast exam by your physician is recommended on an annual basis and results should be correlated with mammographic findings. MG 3D Screening Mammo W/Cad Bilateral CC and MLO view(s) were taken. Prior study comparison: October 13, 2019, bilateral MG 3d diag mammo w/cad AIYANA. October 14, 2018, bilateral MG 3d screening mammo w/cad. The breast tissue is almost entirely fat. Stable benign calcifications. There is no discrete abnormality. No significant changes when compared with prior studies. ASSESSMENT: Benign, BI-RAD 2 RECOMMENDATION: Routine screening mammogram of both breasts in 1 year.
== END | disposition home or self-care (01) ==
LOC: RADBDWWP 14:11
PROVIDERS: ATTEND Family Medicine
DX: Z12.31 Encounter for screening mammogram for malignant neoplasm of breast (principal); M85.89 Other specified disorders of bone density and structure, multiple sites; Z78.0 Asymptomatic menopausal state; Z80.3 Family history of malignant neoplasm of breast
CPT/HCPCS: 77063; 77067; 77080

== ENCOUNTER → 2021-12-30 | Outpatient (CLI) | payer MEDICARE ==
--- NOTE | 2021-12-30 12:21 | NM ---
EXAMINATION TYPE: NM stress cardiolite complete DATE OF EXAM: 12/30/2021 COMPARISON: NONE HISTORY: R07.9 chest pain TECHNIQUE: After the intravenous administration of 9.0 mCi Tc 99m Sestamibi - Rest images obtained 4 5 minutes post injection. The patient exercised using a SHERITA protocol and 1 minute prior to peak e xercise was injected with 25.1 mCi Tc 99m Sestamibi - Stress images obtained 25 minutes post injectio n. FINDINGS: Targeted heart rate was achieved during performance of the study. Review of stress and rest SPECT vincenzo ges demonstrates small area of reversible ischemia involving the cardiac apex. Gated analysis shows n ormal wall motion with an estimated left ventricular ejection fraction of 60 %. IMPRESSION: small area of reversible ischemia involving the cardiac apex.
--- NOTE | 2022-01-03 13:08 | CA ---
Exercise Stress Test Report Name: Marina Segura Exam Date: 12/30/2021 11:02 Exam Location: [place] Stress Ht (in): 66 Wt (lb): 182 BSA: 1.92 Ordering Phys: Raquel Diggs MD Referring Phys: DYANA,, Technologist: Logan Rooney Age: 71 Gender: F : 1950 Procedure CPT: Indications: R07.9 CHEST PAIN ICD-10 Codes: Patient History: CP, ELEVATED CHOLESTEROL LEVELS, FAMILY HX OF HEART DISEASE, PRIOR SMOKING HISTORY OF 1 PPD X 10 YEARS Medications: ZETIA, MYRBETRIQ, MULTIVITAMINS Meds past 24 hrs: Pretest Chest Pain: STRESS TEST Poncho Protocol Exercise Duration (min:sec): 09:[address] Depressions (mm): Angina Score: Townsend Score: Resting HR (bpm): 68 Peak HR (bpm): 146 Resting BP (mmHg): 121 / 67 Peak BP (mmHg): 171 / 64 MPHR: 147 Target HR: 125 % MPHR: 99 METS: 10.5 Total Dose: Peak Dose: Atropine: Double Product: 36590 BP Response: Stress Termination: Stress Symptoms: Stress Summary: ECG ANALYSIS Resting ECG: Stress ECG: CONCLUSIONS Stress EKG portion: At baseline patient's EKG showed normal sinus rhythm, normal axis, no significant ST or T wave abnormalities. At peak exercise, EKG showed no significant change from baseline, frequent PVCs. Conclusions: 1. Normal stress without evidence of inducible ischemia. 2. Good exercise capacity. Dr. Khai Hernandez DO (Electronically Signed) Final Date: 30 Dec 2021 11:36
== END | disposition home or self-care (01) ==
LOC: RADNMMAIN 08:17
PROVIDERS: ATTEND Family Medicine
DX: I24.9 Acute ischemic heart disease, unspecified (principal)
CPT/HCPCS: 93017; 78452; A9500

== ENCOUNTER → 2022-02-14 | Outpatient (CLI) | payer MEDICARE ==
[2022-02-14 18:00] LABS: HCT 41.1 % (37.2-46.3); HGB 12.8 g/dL (12.0-15.0); MCH 31.4 pg (27.0-32.0); MCHC 31.1 g/dL (32.0-37.0); MCV 100.7 fL (80.0-97.0); Mean Platelet Volume 10.8 fL (9.5-12.2); NRBC Per 100 WBC 0 /100 WBCS (0.0-0.0); Platelet Count 250 X 10*3/uL (140-440); RBC 4.08 X 10*6/uL (4.10-5.20); RDW 14.2 % (11.5-14.5); WBC 7.39 X 10*3/uL (4.50-10.00)
[2022-02-14 18:10] LABS: Anion Gap 11.9 mmol/L (10.00-18.00); Carbon Dioxide 28.6 mmol/L (20.0-27.5); Non-African American GFR(CKD) 58.7 (60.0-200.0); Potassium 4.1 mmol/L (3.5-5.5)
== END | disposition home or self-care (01) ==
LOC: LABPAT 14:15
PROVIDERS: ATTEND Internal Medicine Interventional Cardiology
DX: Z01.812 Encounter for preprocedural laboratory examination (principal); R07.9 Chest pain, unspecified
CPT/HCPCS: 80051; 82565; 84520; 85027

== ENCOUNTER 2022-02-27 06:04 | Day surgery (SDC) | payer MEDICARE ==
[2022-02-22 15:03] VITALS: BMI 28.9
[~2022-02-27 06:04] MED LIST changes: +ALPRAZolam 0.25 MG TAB PO PRN; +ALPRAZolam 0.5 MG TAB PO PRN; -LACTATED RINGERS 1,000 ML IV SCH; -LIDOCAINE 1% (10MG/ML) FOR IV START INTRADERMA PRN; +NITROGLYCERIN SL TABS 0.4 MG TAB SUBLINGUAL PRN; +SODIUM CHLORIDE 0.9% 1,000 ML in EMPTY BAG 1 BAG IV ONE
[2022-02-27] MEDS ORDERED: SODIUM CHLORIDE 0.9% 1,000 ML IV ONE (06:07)
[2022-02-27 06:34] VITALS: RESP 16; TEMP 98.6
[2022-02-27] MEDS ORDERED: ATORVASTATIN 80 MG TAB PO ONE (07:00)
[2022-02-27] MEDS ORDERED: ASPIRIN 325 MG TAB PO ONE (07:00)
[2022-02-27] MEDS ORDERED: HEPARIN SODIUM,PORCINE 10,000 UNIT in SODIUM CHLORIDE 0.9% 1,000 ML IRRIGATION PRN (07:00)
[2022-02-27] MEDS ORDERED: HEPARIN SODIUM,PORCINE 2,500 UNIT in SODIUM CHLORIDE 0.9% 250 ML IRRIGATION PRN (07:00)
[2022-02-27] MEDS ORDERED: VERAPAMIL 2.5 MG/ML 2 ML AMP ONE (07:10)
[2022-02-27] MEDS ORDERED: HEPARIN SODIUM 1,000 UN/ML (10ML VL) ONE (07:39)
[2022-02-27] MEDS ORDERED: MIDAZOLAM 2 MG/2 ML VIAL IV ONE ×2 (07:56→08:04)
[2022-02-27] MEDS ORDERED: LIDOCAINE 1% INJ 10MG/ML (5 ML VIAL-PF) SQ ONE ×2 (07:56→07:58)
[2022-02-27] MEDS ORDERED: VERAPAMIL SYRINGE (5 MG/10 ML) INTRAARTER ONE ×2 (07:57→07:59)
[2022-02-27] MEDS ORDERED: HEPARIN SODIUM 1,000 UN/ML (10ML VL) IV ONE (07:59)
[2022-02-27] MEDS ORDERED: IOPAMIDOL-370 125ML BTL INJ ONE (08:10)
[2022-02-27] MEDS ORDERED: RX INFO: IV CONTRAST WAS GIVEN 1 EACH MISC MISCELLANE PRN (08:16)
--- NOTE | 2022-02-27 08:19 | P.PCN ---
Date of Procedure: 02/27/22 Operative Findings: CARDIAC CATHETERIZATION PERFORMING PHYSICIAN: Mahad Villasenor MD, RPVI PROCEDURE PERFORMED: 1. Selective right and left coronary angiogram 2. Left heart catheterization INDICATION: Chest discomfort in this 71-year-old female patient with dyslipidemia and significant family history of CAD beach she underwent myocardial perfusion imaging stress test came in to be abnormal showing apical ischemia COMPLICATION: None APPROACH: Right radial artery LEVEL OF SEDATION: Moderate with a sedation length of 14 minutes PROCEDURE DESCRIPTION: After obtaining an informed consent, the patient was brought to cardiac laboratory animal caretaker. Local anesthesia was performed using lidocaine subcutaneously. The right radial artery was cannulated using Seldinger technique, the guidewire passed easily, following that we advanced a 5-Japanese sheath dilator assembly, the wire and dilator were removed and sheath was flushed. Following that, 2 mg of verapamil along with 5000 unit heparin were given. Selective right and left coronary angiogram using a 6-Japanese JR4 and JL 3.5 catheters. Following that we did left heart catheterization using 6-Japanese pigtail catheter. The procedure was completed there was no complication. SELECTIVE CORONARY ANGIOGRAM: The right coronary artery: Is a large caliber vessel ansa dominant vessel. Its angiographically normal. Distally bifurcates into PDA and PLV branches both appeared to be angiographically normal Left main: Is angiographically normal. Bifurcates into LCx and LAD The left circumflex: Is a large caliber vessel nondominant vessel. The LCx is angiographically normal. It gives rises into the first and second OM branches both appeared to be angiographically normal The left anterior descending artery: Is a large caliber vessel. The LAD itself is mildly calcified was no obstructive disease. Gives rises into a large diagonal branch which has an ostial lesion appeared to be in the range of 50% HEMODYNAMICS: The LVEDP was about 12 mmHg was no significant gradient across aortic valve CONCLUSION: 1. Intermediate lesion involving the ostial first diagonal branch 2. Normal left-sided filling pressure POSTPROCEDURE MANAGEMENT: Medical treatment and follow-up with the patient
[2022-02-27] MEDS ORDERED: SODIUM CHLORIDE 0.9% 1,000 ML IV SCH (08:30)
[2022-02-27 11:18] VITALS: BP 111/59
[2022-02-27 13:23] VITALS: PULSE 68
== END 2022-02-27 13:10 | disposition home or self-care (01) ==
LOC: CATHCVL 06:04
PROVIDERS: ATTEND Internal Medicine Interventional Cardiology
DX: I25.10 Atherosclerotic heart disease of native coronary artery without angina pectoris (principal); R94.39 Abnormal result of other cardiovascular function study; E78.5 Hyperlipidemia, unspecified; Z20.822 Contact with and (suspected) exposure to COVID-19; Z79.82 Long term (current) use of aspirin; Z79.899 Other long term (current) drug therapy; Z82.49 Family history of ischemic heart disease and other diseases of the circulatory system
CPT/HCPCS: 93458; 87635; C1769; C1894; J2250; J2001; J1644; Q9967

== ENCOUNTER → 2023-01-01 | Outpatient (CLI) | payer MEDICARE ==
--- NOTE | 2023-01-02 07:57 | MM ---
Reason for Exam: Screening (asymptomatic). Last screening mammogram was performed 12 month(s) ago. Patient History: Menarche at age 10. First Full-Term at age 25. Left ovary removed at age 62. Right ovary removed at age 62. Hysterectomy at age 62. Postmenopausal. Other cancer. Hormonal Contraceptives for 5 years from age 19 until age 24. Benign Excisional Biopsy on the right side. 06/22/2004, Stereotactic Core Biopsy on the Right side. Paternal aunt had breast cancer, age 60. Risk Values: Mahnaz 5 year model risk: 2.9%. NCI Lifetime model risk: 6.7%. Prior Study Comparison: 10/14/2018 Bilateral Screening Mammogram, [facility]. 10/13/2019 Bilateral Diagnostic Mammogram, [facility]. 12/29/2021 Bilateral Screening Mammogram, [facility]. Tissue Density: There are scattered fibroglandular densities. Findings: Analyzed By CAD. Pattern appears stable. Multiple benign spherical calcifications are present bilaterally. No significant interval changes are evident. There are markers within the No suspicious groups of microcalcifications, spiculated or lobular masses, architectural distortion or other secondary signs of malignancy are mammographically apparent. Overall Assessment: Benign, BI-RAD 2 Management: Screening Mammogram of both breasts in 1 year. A negative mammogram report should not preclude additional follow up of suspicious palpable abnormalities. Patient should continue monthly self breast exam. A clinical breast exam by your physician is recommended on an annual basis and results should be correlated with mammographic findings. Electronically signed and approved by: Dada Camacho D.O. Radiologis
== END | disposition home or self-care (01) ==
LOC: RADMAMWWP 07:56
PROVIDERS: ATTEND Family Medicine
DX: Z12.31 Encounter for screening mammogram for malignant neoplasm of breast (principal); Z78.0 Asymptomatic menopausal state; Z80.3 Family history of malignant neoplasm of breast
CPT/HCPCS: 77063; 77067

== ENCOUNTER 2023-06-21 08:27 | Emergency (ER) | payer MEDICARE ==
--- NOTE | 2023-06-21 09:41 | ED ---
Abdominal Pain HPI - General Chief Complaint: Abdominal Pain Stated Complaint: constipation Time Seen by Provider: 06/21/23 08:57 Source: patient Mode of arrival: ambulatory Limitations: no limitations - History of Present Illness Initial Comments: The patient is a 72 yr old female with a history of GERD, and HLD who presents to the ED with complaints of constipation and abdominal pain since sunday. the patient states she has only had a few "nuggets" that have come out. the patient has tried to take miralax, stool softeners and enemas without relief. she denies any fevers or vomiting. denies any history of bowel obstructions or abdominal surgery history. - Related Data Home Medications Medication Instructions Recorded Confirmed Ezetimibe [Zetia] 10 mg PO HS 04/10/17 02/27/22 Mirabegron [Myrbetriq] 25 mg PO HS 04/10/17 02/27/22 Aspirin [Adult Low Dose Aspirin EC] 81 mg PO DAILY 02/22/22 02/27/22 Doxycycline [Vibramycin] 100 mg PO DAILY 02/22/22 02/27/22 Omeprazole [PriLOSEC] 40 mg PO AC-BRKFST PRN 02/22/22 02/27/22 Previous Rx's Medication Instructions Recorded Magnesium Citrate 150 ml PO DAILY 2 Days #296 ml 06/21/23 Sodium, Potassium,Mag Sulfates 354 ml PO DIRECTED #1 kit 06/21/23 [Suprep Bowel Prep Kit] Allergies Allergy/AdvReac Type Severity Reaction Status Date / Time ciprofloxacin [From Cipro] Allergy Unknown Verified 05/31/21 10:12 Penicillins Allergy Rash/Hives Verified 05/31/21 10:12 shellfish derived [Shrimp] Allergy Rash/Hives Verified 05/31/21 10:12 Sulfa (Sulfonamide Allergy Dyspnea Verified 05/31/21 10:12 Antibiotics) Review of Systems ROS Statement: Those systems with pertinent positive or pertinent negative responses have been documented in the HPI. ROS Other: All systems not noted in ROS Statement are negative. Past Medical History Past Medical History: GERD/Reflux, Hyperlipidemia, Sleep Apnea/CPAP/BIPAP Additional Past Medical History / Comment(s): constipation, urinary leakage History of Any Multi-Drug Resistant Organisms: None Reported Past Surgical History: Bladder Surgery, Hysterectomy, Tonsillectomy Additional Past Surgical History / Comment(s): lasik surgery rober Past Anesthesia/Blood Transfusion Reactions: Motion Sickness Past Psychological History: No Psychological Hx Reported Smoking Status: Never smoker Past Alcohol Use History: Daily - Past Family History Father Family Medical History: Deep Vein Thrombosis (DVT) General Exam Limitations: no limitations General appearance: alert, in no apparent distress Head exam: Present: atraumatic Eye exam: Present: normal appearance ENT exam: Present: normal exam Neck exam: Present: normal inspection Respiratory exam: Present: normal lung sounds bilaterally Cardiovascular Exam: Present: regular rate, normal rhythm GI/Abdominal exam: Present: soft, tenderness (Mild bilateral lower abdominal pain worse over the left lower quadrant), other (No rebound tenderness no peritoneal signs) Rectal exam: Present: other (No stool in the vault, no bleeding no hemorrhoids) Extremities exam: Present: full ROM Back exam: Present: full ROM Neurological exam: Present: alert, oriented X3, CN II-XII intact Psychiatric exam: Present: normal affect, normal mood Skin exam: Present: warm, dry Course Vital Signs 06/21/23 06/21/23 06/21/23 08:37 09:30 10:44 Temperature 98.3 F 98.2 F 98.6 F Pulse Rate 88 80 81 Respiratory 18 18 16 Rate Blood Pressure 131/69 126/82 124/74 O2 Sat by Pulse 100 96 96 Oximetry 06/21/23 11:59 Temperature 98.3 F Pulse Rate 79 Respiratory 18 Rate Blood Pressure 135/79 O2 Sat by Pulse 97 Oximetry - Reevaluation(s) Reevaluation #1: 06/21/23 13:53 Is unable to get any stool out on the rectal exam, not able to disimpact. Patient is requesting an enema in the emergency room prior to discharge. I discussed with her that there is a good chance that a lot of stool Will not come out with the enema as the computed tomography scan is not showing it impaction or significant amount of stool in the sigmoid colon. There is only a mild amount of stool throughout which is likely why she is not having a bowel movement. I discussed with her she may try the oral laxatives at home however getting back, regular diet and hydrating as well as fiber with help 1 to regulate the bowel movements the medics. 08/21/22 13:54 Procedures - Procedures Initial comment: Attempted disimpaction however there is no stool in the vault. There is no b leeding on exam no hemorrhoids. Medical Decision Making - Medical Decision Making Was pt. sent in by a medical professional or institution (, [facility], [facility], urgent care, hospital, or intermediate...) When possible be specific @ -[No] Did you speak to anyone other than the patient for history (EMS, parent, family, police, friend...)? What history was obtained from this source @ -[No] Did you review nursing and triage notes (agree or disagree)? Why? @ -[I reviewed and agree with nursing and triage notes] Were old charts reviewed (outside hosp., previous admission, EMS record, old EKG, old radiological studies, urgent care reports/EKG's, intermediate records)? Report findings @ -[No old charts were reviewed] Differential Diagnosis (chest pain, altered mental status, abdominal pain women, abdominal pain men, vaginal bleeding, weakness, fever, dyspnea, syncope, headach e, dizziness, GI bleed, back pain, seizure, CVA, palpatations, mental health, musculoskeletal)? @ -Constipation, bowel obstruction, diverticulitis, colitis EKG interpreted by me (3pts min.). @ -[As above] X-rays interpreted by me (1pt min.). @ -[None done] CT interpreted by me (1pt min.). @ -CT of the abdomen is negative for any mass hemorrhage or obstruction. R adiology report pending for confirmation of acute changes U/S interpreted by me (1pt. min.). @ -[None done] What testing was considered but not performed or refused? (CT, X-rays, U/S, labs)? Why? @ -[None] What meds were considered but not given or refused? Why? @ -[None] Did you discuss the management of the patient with other professionals (professionals i.e. , [facility], [facility], lab, RT, psych nurse, social media sr strategy manager, orthophoto tech/draftsman, teacher, chief revenue officer, director of casework department)? Give summary @ -[No] Was smoking cessation discussed for >3mins.? @ -[No] Was critical care preformed (if so, how long)? @ -[No] Were there social determinants of health that impacted care today? How? (Homelessness, low income, unemployed, alcoholism, drug addiction, transportation, low edu. Level, literacy, decrease access to med. care, correction, rehab)? @ -[No] Was there de-escalation of care discussed even if they declined (Discuss DNR or withdrawal of care, Hospice)? DNR status @ -[No] What co-morbidities impacted this encounter? (DM, HTN, Smoking, COPD, CAD, Cancer, CVA, ARF, Chemo, Hep., AIDS, mental health diagnosis, sleep apnea, morbid obesity)? @ -[None] Was patient admitted / discharged? Hospital course, mention meds given and route, prescriptions, significant lab abnormalities, going to OR and other pertinent info. @ -The patient is stable to follow up as an outpatient with GI specialist or primary care physician as needed. There is no indication that hospitalization is required based on lab and imaging results. Patient only has mild amount of stool throughout her computed tomography scan and there is no impaction seen. Was unable to get any stool out on the rectal exam and attempted disimpaction. Patient was requesting an enema which she will get emergency room however she does understand that it is likely she will not get a lot of stool out based on her computed tomography scan findings. Patient is stable to follow up and does not meet requirement to stay in the hospital. I discussed treatment plan and management with attending ED physician Dr. Villalta today. Undiagnosed new problem with uncertain prognosis? @ -[No] Drug Therapy requiring intensive monitoring for toxicity (Heparin, Nitro, Insulin, Cardizem)? @ -[No] Were any procedures done? @ -[No] Diagnosis/symptom? @ -Constipation, Change in Bowel Habits, abdominal pain Acute, or Chronic, or Acute on Chronic? @ -Acute Uncomplicated (without systemic symptoms) or Complicated (systemic symptoms)? @ -Uncomplicated Side effects of treatment? @ -[No] Exacerbation, Progression, or Severe Exacerbation? @ -[No] Poses a threat to life or bodily function? How? (Chest pain, USA, ID, pneumonia, PE, COPD, DKA, ARF, appy, cholecystitis, CVA, Diverticulitis, Homicidal, Suicidal, threat to staff... and all critical care pts) @ -[No] - Lab Data Result diagrams: 06/21/23 09:20 06/21/23 09:20 Lab Results 06/21/23 06/21/23 06/21/23 Range/Units 09:20 09:20 09:20 WBC 9.2 (3.8-10.6) k/uL RBC 4.25 (3.80-5.40) m/uL Hgb 13.9 (11.4-16.0) gm/dL Hct 42.2 (34.0-46.0) % MCV 99.3 (80.0-100.0) fL MCH 32.6 (25.0-35.0) pg MCHC 32.8 (31.0-37.0) g/dL RDW 12.9 (11.5-15.5) % Plt Count 226 (150-450) k/uL MPV 8.8 Neutrophils % 65 % Lymphocytes % 22 % Monocytes % 9 % Eosinophils % 2 % Basophils % 0 % Neutrophils # 6.0 (1.3-7.7) k/uL Lymphocytes # 2.0 (1.0-4.8) k/uL Monocytes # 0.9 (0-1.0) k/uL Eosinophils # 0.2 (0-0.7) k/uL Basophils # 0.0 (0-0.2) k/uL Sodium 136 L (137-145) mmol/L Potassium 5.0 (3.5-5.1) mmol/L Chloride 102 (98-107) mmol/L Carbon Dioxide 23 (22-30) mmol/L Anion Gap 11 mmol/L BUN 13 (7-17) mg/dL Creatinine 0.74 (0.52-1.04) mg/dL Est GFR (CKD-EPI)AfAm >90 (>60 ml/min/1.73 sqM) Est GFR (CKD-EPI)NonAf 81 (>60 ml/min/1.73 sqM) Glucose 98 (74-99) mg/dL Calcium 9.4 (8.4-10.2) mg/dL Total Bilirubin 1.1 (0.2-1.3) mg/dL AST 45 H (14-36) U/L ALT 20 (4-34) U/L Alkaline Phosphatase 57 (38-126) U/L Total Protein 7.4 (6.3-8.2) g/dL Albumin 4.1 (3.5-5.0) g/dL Lipase 44 (23-300) U/L Urine Color Colorless Urine Appearance Clear (Clear) Urine pH 6.0 (5.0-8.0) Ur Specific [place] 1.003 (1.001-1.035) Urine Protein Negative (Negative) Urine Glucose (UA) Negative (Negative) Urine Ketones Negative (Negative) Urine Blood Negative (Negative) Urine Nitrite Negative (Negative) Urine Bilirubin Negative (Negative) Urine Urobilinogen <2.0 (<2.0) mg/dL Ur Leukocyte Esterase Negative (Negative) - Radiology Data Radiology results: report reviewed, image reviewed Disposition Clinical Impression: Abdominal pain, Constipation Disposition: HOME SELF-CARE Condition: Good Instructions (If sedation given, give patient instructions): Abdominal Pain (ED), Constipation (DC), Constipation (ED), High Fiber Diet (ED) Is patient prescribed a controlled substance at d/c from ED?: No When asked, does pt state using other controlled substances?: No Referrals: Raquel Diggs MD [Primary Care Provider] - 1-2 days Time of Disposition: 02:10
[2023-06-21 09:50] LABS: Basophils % (A) 0 %; Eosinophils # (A) 0.2 k/uL (0-0.7); Eosinophils % (A) 2 %; HCT 42.2 % (34.0-46.0); HGB 13.9 gm/dL (11.4-16.0); Lymphocytes % (A) 22 %; MCH 32.6 pg (25.0-35.0); MCHC 32.8 g/dL (31.0-37.0); MCV 99.3 fL (80.0-100.0); Mean Platelet Volume 8.8; Monocytes # (A) 0.9 k/uL (0-1.0); Monocytes % (A) 9 %; Neutrophils % (A) 65 %; Platelet Count 226 k/uL (150-450); RBC 4.25 m/uL (3.80-5.40); RDW 12.9 % (11.5-15.5); WBC 9.2 k/uL (3.8-10.6)
[2023-06-21 10:00] LABS: Appearance,Urine Clear (Clear); Bilirubin,Urine Negative (Negative); Blood,Urine Negative (Negative); Color,Urine Colorless; Glucose,Urine (UA) Negative (Negative); Ketones,Urine Negative (Negative); Leukocyte Esterase,Urine Negative (Negative); Nitrite,Urine Negative (Negative); Protein,Urine Negative (Negative); Specific Gravity,Urine 1.003 (1.001-1.035); Urobilinogen,Urine <2.0 mg/dL (<2.0)
[2023-06-21 10:09] LABS: ALT 20 U/L (4-34); AST 45 U/L (14-36); African American GFR (CKD) >90 (>60 ml/min/1.73 sqM); Albumin 4.1 g/dL (3.5-5.0); Alkaline Phosphatase 57 U/L (38-126); Anion Gap 11 mmol/L; Blood Urea Nitrogen 13 mg/dL (7-17); Calcium 9.4 mg/dL (8.4-10.2); Carbon Dioxide 23 mmol/L (22-30); Chloride 102 mmol/L (98-107); Glucose 98 mg/dL (74-99); Lipase 44 U/L (23-300); Non-African American GFR(CKD) 81 (>60 ml/min/1.73 sqM); Sodium 136 mmol/L (137-145); Total Bilirubin 1.1 mg/dL (0.2-1.3); Total Protein 7.4 g/dL (6.3-8.2)
--- NOTE | 2023-06-21 11:38 | CT ---
EXAMINATION TYPE: CT abdomen pelvis w con DATE OF EXAM: 06/21/2023 COMPARISON: 01/17/2019 INDICATION: Constipation, abdominal pain DLP: 1359 mGycm, Automated exposure control for dose reduction was used. CONTRAST: 100 mL of Isovue 300. Study performed without Oral Contrast TECHNIQUE: Axial images were obtained from above the diaphragm to the pubic rami in the axial plane a t 5 mm thick sections. Reconstructed images are reviewed on the computer in the coronal plane. FINDINGS: Limited CT sections are obtained the lung bases. Moderate size hiatal hernia is present.. CT ABDOMEN: Liver: Normal Spleen: Normal Pancreas: Normal Adrenal glands: The adrenal glands are normal. Gallbladder: Normal Kidneys: No masses are evident. No hydronephrosis is present. No cysts are present. Delayed images were obtained through the kidneys, which remain unremarkable. Aorta: Vascular calcification is within the aorta. Inferior vena cava: Normal. CT PELVIS: There is fecal debris through the colon. No suspicious air-fluid levels are evident. A few diverticul i are present. No acute diverticulitis. Small bowel loops are nondilated this study is without oral c ontrast limiting bowel evaluation. Appendix: Not identified. No dilated tubular structure or inflammatory change is evident. Urinary bladder: Normal. Genitourinary structures: Uterus and ovaries are not identified. Osseous structures: No suspicious lytic or sclerotic lesions. IMPRESSION: 1. Mild diffuse fecal retention throughout the colon. 2. Moderate size hiatal hernia
[2023-06-21 12:16] VITALS: RESP 18
[2023-06-21 14:36] VITALS: BP 129/76; PULSE 86; TEMP 98.7
== END 2023-06-21 14:46 | disposition home or self-care (01) ==
LOC: EC 08:27
DX: K44.9 Diaphragmatic hernia without obstruction or gangrene (principal); K59.00 Constipation, unspecified; K21.9 Gastro-esophageal reflux disease without esophagitis; I10 Essential (primary) hypertension; G47.30 Sleep apnea, unspecified; Z79.82 Long term (current) use of aspirin; Z79.899 Other long term (current) drug therapy; Z88.0 Allergy status to penicillin; Z88.2 Allergy status to sulfonamides; Z88.8 Allergy status to other drugs, medicaments and biological substances
CPT/HCPCS: 36415; 80053; 83690; 85025; 81003; 74177; 99284; Q9967

== ENCOUNTER → 2023-07-03 | Outpatient (CLI) | payer MEDICARE ==
[2023-07-03 10:47] LABS: Basophils # (A) 0.06 X 10*3/uL (0.00-0.10); Basophils % (A) 1.1 %; Eosinophils # (A) 0.22 X 10*3/uL (0.04-0.35); Eosinophils % (A) 3.9 %; HCT 42.8 % (37.2-46.3); HGB 13.6 g/dL (12.0-15.0); Lymphocytes # (A) 2.22 X 10*3/uL (0.90-5.00); Lymphocytes % (A) 39.3 %; MCH 31.8 pg (27.0-32.0); MCHC 31.8 g/dL (32.0-37.0); Mean Platelet Volume 10.6 FL (9.5-12.2); Monocytes # (A) 0.74 X 10*3/uL (0.20-1.00); Monocytes % (A) 13.1 %; NRBC Per 100 WBC 0 X 10*3/uL (0.00-0.01); Neutrophils % (A) 42.4 %; Platelet Count 293 X 10*3/uL (140-440); RBC 4.28 X 10*6/uL (4.10-5.20); RDW 13.5 % (11.5-14.5); WBC 5.65 X 10*3/uL (4.50-10.00)
[2023-07-03 11:26] LABS: ALT 19 U/L (8-44); AST 25 U/L (13-35); Albumin 4.4 g/dL (3.8-4.9); Albumin/Globulin Ratio 1.76 Ratio (1.60-3.17); Alkaline Phosphatase 73 U/L (41-126); Blood Urea Nitrogen 17.2 mg/dL (9.0-27.0); Calcium 10.1 mg/dL (8.7-10.3); Carbon Dioxide 26.4 mmol/L (21.6-31.8); Chloride 103 mmol/L (96-109); Chol/HDL Ratio 2.79 Ratio; Globulin 2.5 g/dL (1.6-3.3); Glucose 94 mg/dL (70-110); LDL Cholesterol,Calculated 152.5 mg/dL (0.0-131.0); Potassium 4.4 mmol/L (3.5-5.5); Sodium 140 mmol/L (135-145); Total Bilirubin 0.5 mg/dL (0.3-1.2); Total Protein 6.9 g/dL (6.2-8.2); VLDL Calculation 13.06 mg/dL (5.00-40.00)
== END | disposition home or self-care (01) ==
LOC: LABWHC1 07:40
PROVIDERS: ATTEND Family Medicine
DX: Z13.21 Encounter for screening for nutritional disorder (principal); E78.00 Pure hypercholesterolemia, unspecified; R79.9 Abnormal finding of blood chemistry, unspecified
CPT/HCPCS: 36415; 80053; 80061; 82607; 85025

== ENCOUNTER → 2024-01-10 | Outpatient (CLI) | payer MEDICARE ==
--- NOTE | 2024-01-11 10:10 | MM ---
Reason for Exam: Screening (asymptomatic). Last screening mammogram was performed 12 month(s) ago. Patient History: Menarche at age 10. First Full-Term at age 25. Left ovary removed at age 62. Right ovary removed at age 62. Hysterectomy at age 62. Postmenopausal. Other cancer. Hormonal Contraceptives for 5 years from age 19 until age 24. Benign Excisional Biopsy on the right side. 06/22/2004, Stereotactic Core Biopsy on the Right side. Paternal aunt had breast cancer, age 60. Risk Values: Mahnaz 5 year model risk: 2.9%. NCI Lifetime model risk: 6.3%. Prior Study Comparison: 10/13/2019 Bilateral Diagnostic Mammogram, [facility]. 12/29/2021 Bilateral Screening Mammogram, [facility]. 01/01/2023 Bilateral MG 3D screening mammo w/cad, [facility]. Tissue Density: The breasts are almost entirely fatty. Findings: Analyzed By CAD. The pattern is symmetrical. Benign spherical and round calcifications are present bilaterally. Core marker is within the right breast. No significant interval changes are evident. No suspicious groups of microcalcifications, spiculated or lobular masses, architectural distortion or other secondary signs of malignancy are mammographically apparent. Overall Assessment: Benign, BI-RAD 2 Management: Screening Mammogram of both breasts in 1 year. A negative mammogram report should not preclude additional follow up of suspicious palpable abnormalities. Patient should continue monthly self breast exam. A clinical breast exam by your physician is recommended on an annual basis and results should be correlated with mammographic findings. Note on Mahnaz scores and lifetime risk: 1. A Mahnaz score greater than 3% is considered moderate risk. If this is the case, consider specialist referral to assess eligibility for a risk reducing agent. 2. If overall lifetime risk for the development of breast cancer is 20% or higher, the patient may qualify for future screening with alternating mammogram and breast MRI. Electronically signed and approved by: Dada Camacho D.O. Radiologis
== END | disposition home or self-care (01) ==
LOC: RADMAMWWP 08:45
PROVIDERS: ATTEND Family Medicine
DX: Z12.31 Encounter for screening mammogram for malignant neoplasm of breast (principal); M85.88 Other specified disorders of bone density and structure, other site; Z78.0 Asymptomatic menopausal state; Z80.3 Family history of malignant neoplasm of breast
CPT/HCPCS: 77063; 77067; 77080

== ENCOUNTER → 2024-01-24 | Outpatient (CLI) | payer MEDICARE ==
[2024-01-24 11:15] LABS: ALT 16 U/L (8-44); AST 25 U/L (13-35); Albumin 4.3 g/dL (3.8-4.9); Albumin/Globulin Ratio 1.87 Ratio (1.60-3.17); Alkaline Phosphatase 69 U/L (41-126); BUN/Creat Ratio 22.33 Ratio (12.00-20.00); Blood Urea Nitrogen 20.1 mg/dL (9.0-27.0); Calcium 9.7 mg/dL (8.7-10.3); Carbon Dioxide 26.2 mmol/L (21.6-31.8); Chloride 106 mmol/L (96-109); Chol/HDL Ratio 2.39 Ratio; Globulin 2.3 g/dL (1.6-3.3); Glucose 107 mg/dL (70-110); LDL Cholesterol,Calculated 128.2 mg/dL (0.0-131.0); Potassium 4.9 mmol/L (3.5-5.5); Sodium 144 mmol/L (135-145); Total Bilirubin 0.4 mg/dL (0.3-1.2); Total Protein 6.6 g/dL (6.2-8.2); VLDL Calculation 10.94 mg/dL (5.00-40.00)
== END | disposition home or self-care (01) ==
LOC: LABWHC1 07:45
PROVIDERS: ATTEND Family Medicine
DX: E78.00 Pure hypercholesterolemia, unspecified (principal); M85.9 Disorder of bone density and structure, unspecified
CPT/HCPCS: 36415; 80053; 80061; 82306